=== PATIENT | female | born 1990 | race Caucasian/White ===

== ENCOUNTER 2017-09-10 14:47 | Emergency (ER) | payer SELFPAY ==
[~2017-09-10] VITALS: Ht 157.5 cm; Wt 63.5 kg
[2017-09-10 14:50] VITALS: BP 127/55
[2017-09-10] MEDS ORDERED: PROAIR HFA8.5 GM INH (14:59)
[2017-09-10] MEDS ORDERED: AZIT250T6 PO (14:59)
[2017-09-10] MEDS ORDERED: TRAM50TA PO (14:59)
[2017-09-10] MEDS ORDERED: PRED20TA PO (14:59)
--- NOTE | 2017-09-10 14:59 | PHYS DOC ---
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 States she has been coughing up green stuff. Associated symptoms include rhinorrhea and sore throat. Patient's last menstrual period was the beginning of last month. Sick contacts with similar symptoms. Denies fever, chest pain, shortness of breath, headache, abdominal pain, nausea/vomiting, or diarrhea. Review of Systems Review of Systems Constitutional: Denies fever or chills [] Eyes: Denies change in visual acuity, redness, or eye pain [] HENT: Complains of rhinorrhea and sore throat. [] Respiratory: Complains of cough. Denies shortness of breath [] Cardiovascular: No additional information not addressed in HPI [] GI: Denies abdominal pain, nausea, vomiting, bloody stools or diarrhea [] : Denies dysuria or hematuria [] Musculoskeletal: Denies back pain or joint pain [] Integument: Denies rash or skin lesions [] Neurologic: Denies headache, focal weakness or sensory changes [] Endocrine: Denies polyuria or polydipsia [] All other systems were reviewed and found to be within normal limits, except as documented in this note. Allergies Allergies Allergies Coded Allergies Type Severity Reaction Last Updated Verified No Known Drug Allergies 12/15/13 No Physical Exam Physical Exam Constitutional: Well developed, well nourished, no acute distress, non-toxic appearance. [] HENT: Normocephalic, atraumatic, bilateral external ears normal, oropharynx moist, MILD PHARYNGEAL ERYTHEMA. no oral exudates, nose normal. [] Eyes: PERRLA, EOMI, conjunctiva normal, no discharge. [] Neck: Normal range of motion, no tenderness, supple, no stridor. [] Cardiovascular:Heart rate regular rhythm, no murmur [] Lungs & Thorax: DRY COUGH. Bilateral breath sounds clear to auscultation [] Abdomen: Bowel sounds normal, soft, no tenderness, no masses, no pulsatile masses. [] Skin: Warm, dry, no erythema, no rash. [] Back: No tenderness, no CVA tenderness. [] Extremities: No tenderness, no cyanosis, no clubbing, ROM intact, no edema. [] Neurologic: Alert and oriented X 3, normal motor function, normal sensory function, no focal deficits noted. [] Psychologic: Affect normal, judgement normal, mood normal. [] Current Patient Data Vital Signs Vital Signs Date Time Temp Pulse Resp B/P (MAP) Pulse Ox O2 Delivery O2 Flow Rate FiO2 09/10/17 14:50 97.9 73 16 127/55 (79) 98 Room Air 97.9 Lab Values Laboratory Tests Test 09/10/17 15:00 POC Urine HCG, Qualitative Hcg negative (Negative) EKG EKG [] Radiology/Procedures Radiology/Procedures [] Course & Med Decision Making Course & Med Decision Making Pertinent Labs and Imaging studies reviewed. (See chart for details) [] Dragon Disclaimer Dragon Disclaimer This electronic medical record was generated, in whole or in part, using a voice recognition dictation system. Departure Departure Impression: Primary Impression: Acute bronchitis Disposition: 01 HOME, SELF-CARE Condition: IMPROVED Referrals: NO PCP (PCP) JENN BUSH MD Patient Instructions: Acute Bronchitis Scripts Albuterol Sulfate (PROAIR HFA INHALER) 8.5 Gm Hfa.aer.ad 1 PUFF INH PRN Q6HRS Y for SHORTNESS OF BREATH, #1 INHALER 0 Refills Prov: NESTOR BRASHER 09/10/17 Tramadol Hcl (TRAMADOL HCL) 50 Mg Tablet 1 TAB PO PRN Q6HRS, #10 TAB Prov: NESTOR BRASHER 09/10/17 Prednisone (PREDNISONE) 20 Mg Tablet 2 TAB PO DAILY, #10 TAB Prov: NESTOR BRASHER 09/10/17 Azithromycin (AZITHROMYCIN TABLET) 250 Mg Tablet 1 PKG PO UD, #6 TAB Prov: NESTOR BRASHER 09/10/17 NESTOR BRASHER Sep 10, 2017 14:59
== END 2017-09-10 15:05 | disposition home or self-care (01) ==
LOC: ER 14:47
DX: J20.9 Acute bronchitis, unspecified (principal)
CPT/HCPCS: 81025; 99283